=== PATIENT | male | born 1990 | race Caucasian/White ===

== ENCOUNTER 2022-10-11 16:39 | Emergency (ER) | payer BC, OTHER ==
[2022-10-11 17:10] VITALS: RESP 18; TEMP 98.4; BMI 22.1
[2022-10-11] MEDS ORDERED: LORazepam 2 MG TABLET PO ONE (18:06)
[2022-10-11] MEDS ORDERED: LORazepam 1 MG TABLET ONE (18:15)
[2022-10-11 19:14] VITALS: BP 130/81; PULSE 104
== END 2022-10-11 21:39 | disposition home or self-care (01) ==
LOC: JER 16:39
DX: R07.9 Chest pain, unspecified (principal)
CPT/HCPCS: 71046-TC-FY; 93005; 93010; 99284-25